=== PATIENT | male | born 1990 | race Caucasian/White ===

== ENCOUNTER 2021-08-27 20:41 | Emergency (ER) | payer OTHER ==
[~2021-08-27] VITALS: Ht 175.3 cm; Wt 77.1 kg
[2021-08-27 20:59] VITALS: BP 151/85
--- NOTE | 2021-08-27 21:06 | NUR ---
PT TAKEN TO BED 7.
--- NOTE | 2021-08-27 21:08 | NUR ---
Patient BIB by family from home. C/O RUQ abdominal pain x 5 days. Patient reported, had RUQ abdominal pain, no vomiting, no diarrhea. A/O,X4, RUQ abdominal pain, pain rate 3/10, no radiate.
--- NOTE | 2021-08-27 21:08 | NUR ---
Dr. Mendoza at bedside to exam patient.
--- NOTE | 2021-08-27 21:15 | NUR ---
CXR at bedside.
--- NOTE | 2021-08-27 22:11 | NUR ---
Dr. Garay at bedside to exam patient.
--- NOTE | 2021-08-27 22:30 | NUR ---
Patient transfer to radiology dept via wheelchair with refractory technician.
--- NOTE | 2021-08-27 23:38 | NUR ---
Dr. Garay at bedside to explain results and treatment plans/.
[2021-08-27 23:42] VITALS: BP 144/89
--- NOTE | 2021-08-27 23:42 | NUR ---
Patient discharged with v/s stable. Written and verbal after care instructions given and explained. Patient verbalized understanding. Ambulatory with steady gait. All questions addressed prior to discharge. Advised to follow up with PMD.
== END 2021-08-27 23:42 | disposition home or self-care (01) ==
LOC: MED 20:41
DX: R10.9 Unspecified abdominal pain (principal); Z88.0 Allergy status to penicillin
CPT/HCPCS: 71045; 74176; 81002; 93005; 99284; Q0092